=== PATIENT | male | born 1950 | race Caucasian/White ===

== ENCOUNTER → 2017-12-14 | Day surgery (SDC) | payer MEDICARE, OTHER ==
[~2017-12-14] MED LIST: Brimonidine 0.2% Ophth Soln 5 ML Bottle EYEBOTH SCH; Phenylephrine 10% Ophth Soln 5 ML Bot EYELF SCH; Phenylephrine 2.5% Ophth Soln 2 ML Bot EYELF SCH; Pilocarpine 4% Ophth Soln 15 ML Bot EYELF SCH
[2017-12-14] MEDS: Brimonidine 0.2% Ophth Soln 5 ML Bottle EYELF SCH ×2 (10:10→11:03)
[2017-12-14 11:48] VITALS: BP 126/81
== END ==
LOC: JD.SDS 09:55
PROVIDERS: ATTEND Ophthalmology
DX: H26.492 Other secondary cataract, left eye (principal); H16.223 Keratoconjunctivitis sicca, not specified as Sjogren's, bilateral; H16.103 Unspecified superficial keratitis, bilateral; H40.1134 Primary open-angle glaucoma, bilateral, indeterminate stage; H52.213 Irregular astigmatism, bilateral; E11.9 Type 2 diabetes mellitus without complications; E78.00 Pure hypercholesterolemia, unspecified; I10 Essential (primary) hypertension; Z96.1 Presence of intraocular lens; Z94.7 Corneal transplant status; Z95.5 Presence of coronary angioplasty implant and graft; Z90.49 Acquired absence of other specified parts of digestive tract; Z98.890 Other specified postprocedural states; Z87.891 Personal history of nicotine dependence; Z79.899 Other long term (current) drug therapy; Z79.84 Long term (current) use of oral hypoglycemic drugs; Z79.02 Long term (current) use of antithrombotics/antiplatelets
CPT/HCPCS: A9270-GY

== ENCOUNTER 2018-04-23 12:59 | Emergency (ER) | payer OTHER, MEDICARE ==
[2018-04-23 13:10] VITALS: BP 129/76
[2018-04-23] MEDS ORDERED: Lidocaine 1% 50 ML MDV INJECT ONE (13:22)
[2018-04-23] MEDS ORDERED: Diphtheria,Pertussis(Acell),Tetanus Vaccine 0.5 ML SDV IM ONE (13:22)
[2018-04-23] MEDS ORDERED: ceFAZolin 2 GM in Premix Bag 1 BAG IV ONE (13:56)
[2018-04-23] MEDS ORDERED: Sodium Chloride 0.9% 10 ML Syringe FLUSH PRN (13:57)
--- NOTE | 2018-04-23 15:48 | EDM.PDOC ---
ED HPI GENERAL MEDICAL PROBLEM - General Chief Complaint: Upper Extremity Injury/Pain Stated Complaint: SMASHED LEFT HAND Time Seen by Provider: 04/23/18 13:15 Source of Information: Reports: Patient History Limitations: Reports: No Limitations - History of Present Illness INITIAL COMMENTS - FREE TEXT/NARRATIVE: 67 year old male presents for evaluation and treatment of an injury to the left hand 4nd finger. Injury occurred prior to arrival in the ED. Patient was helping move a dryer when the dryer smashed his finger. He is reporting pain to the area bu no numbness, tingling or decreased ROM. Unsure of last tetanus. Patient is right handed. Patient is a diabetic. Onset: Today Left Hand Pain Score (Numeric/FACES): 5 - Related Data Allergies Allergy/AdvReac Type Severity Reaction Status Date / Time No Known Allergies Allergy Verified 12/13/17 13:11 Home Meds: Home Meds Brimonidine [Alphagan 0.2% Ophth Soln] 1 drop EYEBOTH DAILY 06/29/16 [History] Calcium Carbonate 600 mg PO DAILY 06/29/16 [History] Clopidogrel [Plavix] 75 mg PO DAILY 06/29/16 [History] Fenofibrate Nanocrystallized [Tricor] 145 mg PO DAILY 06/29/16 [History] Metoprolol Succinate [Toprol XL] 50 mg PO DAILY 06/29/16 [History] Multivitamin [Multivitamins] 1 each PO DAILY 06/29/16 [History] Rosuvastatin [Crestor] 10 mg PO DAILY 06/29/16 [History] azaTHIOprine [Imuran] 25 mg PO BID 06/29/16 [History] glipiZIDE [Glucotrol XL] 10 mg PO BID 06/29/16 [History] Brimonidine Tartrate/Timolol [Combigan 0.2%-0.5% Eye Drops] 1 dose EYEBOTH ASDIRECTED 12/13/17 [History] Difluprednate [Durezol] 1 dose EYEBOTH ASDIRECTED 12/13/17 [History] Insulin Aspart [NovoLOG] 1 dose SQ TIDAC 12/13/17 [History] Isosorbide Mononitrate [Imdur] 30 mg PO DAILY 12/13/17 [History] Loteprednol [Lotemax 0.5%] 1 drop EYEBOTH ASDIRECTED 12/13/17 [History] Ramipril [Altace] 2.5 mg PO DAILY 12/13/17 [History] Tresiba 42 units SQ QAM 12/13/17 [History] cycloSPORINE [Restasis] 1 drop EYEBOTH ASDIRECTED 12/13/17 [History] Past Medical History Cardiovascular History: Reports: High Cholesterol, Hypertension Gastrointestinal History: Reports: Other (See Below) Other Gastrointestinal History: ulcerative colitis Musculoskeletal History: Reports: Arthritis Endocrine/Metabolic History: Reports: Diabetes, Type II Hematologic History: Reports: Blood Transfusion(s) Immunologic History: Reports: Immunosuppression - Past Surgical History HEENT Surgical History: Reports: Eye Surgery Cardiovascular Surgical History: Reports: Coronary Artery Stent GI Surgical History: Reports: Cholecystectomy Social & Family History - Family History Family Medical History: Noncontributory - Tobacco Use Smoking Status *Q: Never Smoker - Caffeine Use Caffeine Use: Reports: None - Recreational Drug Use Recreational Drug Use: No Review of Systems - Review of Systems Review Of Systems: See Below Musculoskeletal: Reports: Hand Pain (left hadn 4th finger), Other (no decreased ROM) Skin: Reports: Wound (left hand 4th finger) Neurological: Denies: Numbness, Tingling ED EXAM, GENERAL - Physical Exam Exam: See Below Exam Limited By: No Limitations General Appearance: Alert, WD/WN, No Apparent Distress Respiratory/Chest: No Respiratory Distress Cardiovascular: Normal Peripheral Pulses Peripheral Pulses: 2+: Radial (L) Extremities: Normal Range of Motion (able to make a fist, flex, extend, adduct and abduct left hand, able to oppose fingers to thumb), Normal Capillary Refill Neurological: Alert, Oriented, Normal Cognition Psychiatric: Normal Affect, Normal Mood Skin Exam: Warm, Dry, Normal Color, Wound/Incision (approximately 5cm irregular , complex laceration to the left hand 4th finger) ED TRAUMA EXTREMITY PROCEDURES - Laceration/Wound Repair Left Digit - 4th (Ring) Lac/Wound Length In cm: 5 Appearance: Subcutaneous, Irregular, Clean Distal NVT: Neuro & Vascular Intact, No Tendon Injury Anesthetic Type: Digital Local Anesthesia - Lidocaine (Xylocaine): 1% Plain Local Anesthetic Volume: 5cc Skin Prep: Chlorhexidine (Hibiciens), Saline, Sterile Drape Saline Irrigation (cc's): 160 Exploration/Debridement/Repair: Wound Explored, No Foreign Material Found Closed With: Sutures Suture Size: 4-0 # of Sutures: 20 Suture Type: Nylon, Interrupted, Simple Sterile Dressing Applied: Nurse Tetanus Status Addressed: Yes Complications: No Course - Vital Signs Last Recorded V/S: Last Vital Signs Temp 97.4 F 04/23/18 13:08 Pulse 57 L 04/23/18 13:08 Resp 18 04/23/18 13:08 BP 129/76 04/23/18 13:08 Pulse Ox 95 04/23/18 13:08 - Orders/Labs/Meds Meds: Medications Discontinued Medications Generic Name Dose Route Start Last Admin Trade Name Freq PRN Reason Stop Dose Admin Diphtheria/Tetanus/Acell Pertussis 0.5 ml 04/23/18 13:22 04/23/18 13:44 Adacel IM 04/23/18 13:23 0.5 ml .ONCE ONE Administration Cefazolin Sodium/Dextrose 2 gm 50 mls @ 100 mls/hr 04/23/18 13:56 04/23/18 15 :55 / Premix IV 04/23/18 14:25 100 mls/hr ONETIME ONE Administration Lidocaine HCl 50 ml 04/23/18 13:22 04/23/18 13:47 Xylocaine 1% INJECT 04/23/18 13:23 50 ml ONETIME ONE Administration Sodium Chloride 10 ml 04/23/18 13:57 04/23/18 15:56 Saline Flush FLUSH 10 ml ASDIRECTED PRN Administration Keep Vein Open - Radiology Interpretation Free Text/Narrative:: xray of the left hand 4th finger shows a fracture of the distal phalnex of the left hand 4th finger - Re-Assessments/Exams Free Text/Narrative Re-Assessment/Exam: 04/23/18 15:[address] Blade Nelson. Recommended plenty of irrigation, ancef IV here in the ED and cephalexin as an outpatient. Close follow-up in the clinic with ortho and PCP. Reviewed the xray results with the patient. Digital block preformed. 20 sutures placed. Patient tolerated well. No complications. Tetanus up dated. Recommendations given for wound care. Number for ortho given. Nursing staff placed in an aluminiform splint. Discharge instructions as documented. Departure - Departure Time of Disposition: 15:45 Disposition: Home, Self-Care 01 Condition: Fair Clinical Impression: Phalanx, distal fracture of finger, Open fracture of finger of left hand, Laceration - Discharge Information *PRESCRIPTION DRUG MONITORING PROGRAM REVIEWED*: No *COPY OF PRESCRIPTION DRUG MONITORING REPORT IN PATIENT JESUS: No Instructions: Finger Fracture, Laceration Care, Adult, [id number] Referrals: Irlanda Stover NP [Primary Care Provider] - Oneil Mehta MD [Physician] - Forms: ED Department Discharge Additional Instructions: Ice and elevate the finger, ice even over the splint. Keflex 3 times a day for 10 days. Take this medication with food to prevent side effects of upset stomach, nausea and diarrhea. [id number] Tylenol or Motrin as needed for pain relief. Wash the wound with gentle soap and water twice a day. keep the wound covered. Keep splint on at all times. Do not soak or submerge the wound. Monitor for signs of infection such as increased swelling, pus or redness. Present the clinic or the ER should these develop. Have the sutures removed in 10 days. your primary care provider can do this for you. Follow-up with orthopedics in 1-2 weeks for follow-up of the distal phalanx fracture. Recommend Dr. Mehta at [facility]. Call [phone] to schedule with him. Please return to the ER if your symptoms change or worsen.
--- NOTE | 2018-04-26 13:00 | CR ---
Left fourth finger: Four views centered to the left fourth finger were obtained. Slightly comminuted and minimally displaced tuft fracture seen within the distal fourth finger. Soft tissue swelling is noted. Joint space narrowing noted within the visualized MCP, DIP and PIP joints. No other acute abnormality is seen. Impression: 1. Tuft fracture with soft tissue swelling. 2. Degenerative change. Diagnostic code #3
== END 2018-04-23 15:51 | disposition home or self-care (01) ==
LOC: JD.ED 12:59
DX: S62.635B Displaced fracture of distal phalanx of left ring finger, initial encounter for open fracture (principal); E78.00 Pure hypercholesterolemia, unspecified; I10 Essential (primary) hypertension; E11.9 Type 2 diabetes mellitus without complications; Z79.4 Long term (current) use of insulin; Z79.899 Other long term (current) drug therapy; Z95.5 Presence of coronary angioplasty implant and graft; Z23 Encounter for immunization; W31.9XXA Contact with unspecified machinery, initial encounter
CPT/HCPCS: 12002; 64450; 73140; 90471; 90715; 96374; 99283; J0690; J7050; 12004